=== PATIENT | male | born 1985 | race Caucasian/White ===

== ENCOUNTER 2016-05-05 19:41 | Emergency (ER) | payer MEDICAID ==
[~2016-05-05] VITALS: Ht 177.8 cm; Wt 94.3 kg
[2016-05-05 20:54] LABS: BASOPHIL % 0.6 % (0-2); PLATELET COUNT 213 x10^3mcL (130-400); RED CELL DISTRIBUTION WIDTH 13.6 % (11.5-14.5)
[2016-05-05 21:09] LABS: CALCIUM 8.5 mg/dL (8.5-10.1); CARBON DIOXIDE 26.5 mmol/L (21-32); CHLORIDE SERUM 107 mmol/L (98-107); CREATININE SERUM 0.8 mg/dL (0.7-1.3); GFR1 > 60 mL/min; GLUCOSE SERUM 88 mg/dL (74-106); POTASSIUM SERUM 3.6 mmol/L (3.5-5.1); SODIUM SERUM 145 mmol/L (136-145)
[2016-05-05 21:26] LABS: ALBUMIN 4.1 g/dL (3.4-5.0); ALKALINE PHOSPHATASE 97 U/L (46-116); BILIRUBIN TOTAL 0.33 mg/dL (0.20-1.00); T4(THYROXINE) 7.7 ug/dL (4.7-13.3); TOTAL PROTEIN, SERUM 7.6 g/dL (6.4-8.2)
[2016-05-05 21:40] LABS: ALT/SGPT 39 U/L (16-63); AST/SGOT 20 U/L (15-37)
[2016-05-05 21:54] LABS: AMPHETAMINE QUAL UR NONE DETECTED (NEG <=1000)
[2016-05-05 22:18] VITALS: BP 132/66
== END 2016-05-05 22:18 | disposition home or self-care (01) ==
LOC: ED 19:41
PROVIDERS: Emergency Medicine
DX: F41.1 Generalized anxiety disorder (principal)
CPT/HCPCS: 80307

== ENCOUNTER 2019-02-18 15:58 | Emergency (ER) | payer BC ==
[~2019-02-18] VITALS: Ht 175.3 cm; Wt 112.0 kg
[2019-02-18 16:01] VITALS: Ht 175.3 cm; Wt 112.0 kg
[2019-02-18 16:21] LABS: PLATELET COUNT 210 x10^3mcL (130-400); RED CELL DISTRIBUTION WIDTH 12.7 % (11.5-14.5)
[2019-02-18 16:34] LABS: CALCIUM 9.2 mg/dL (8.5-10.1); CARBON DIOXIDE 30.7 mmol/L (21-32); CHLORIDE SERUM 101 mmol/L (98-107); GFR1 > 60 mL/min; GLUCOSE SERUM 97 mg/dL (74-106); SODIUM SERUM 138 mmol/L (136-145)
[2019-02-18 16:39] LABS: ALBUMIN 4.3 g/dL (3.4-5.0); ALKALINE PHOSPHATASE 89 U/L (46-116); ALT/SGPT 84 U/L (16-63); AST/SGOT 28 U/L (15-37); BILIRUBIN TOTAL 0.77 mg/dL (0.20-1.00)
[2019-02-18 17:30] LABS: AMPHETAMINE QUAL UR NONE DETECTED (See below)
[2019-02-18 19:19] VITALS: BP 137/89
== END 2019-02-18 19:19 | disposition home or self-care (01) ==
LOC: ED 15:58
PROVIDERS: Emergency Medicine
DX: R07.89 Other chest pain (principal); I10 Essential (primary) hypertension; Z98.890 Other specified postprocedural states
CPT/HCPCS: 36415; J1885

== ENCOUNTER 2019-04-06 12:07 | Emergency (ER) | payer BC ==
[~2019-04-06] VITALS: Ht 175.3 cm; Wt 113.4 kg
[2019-04-06 12:26] VITALS: Ht 175.3 cm; Wt 113.4 kg
[2019-04-06 14:25] VITALS: BP 144/71
== END 2019-04-06 14:25 | disposition home or self-care (01) ==
LOC: ED 12:07
DX: M54.41 Lumbago with sciatica, right side (principal); I10 Essential (primary) hypertension; Z98.890 Other specified postprocedural states

== ENCOUNTER 2019-09-26 09:09 | Emergency (ER) | payer BC ==
[~2019-09-26] VITALS: Ht 175.3 cm; Wt 116.1 kg
[2019-09-26 09:17] VITALS: Ht 175.3 cm; Wt 116.1 kg
[2019-09-26 11:13] LABS: CALCIUM 9.1 mg/dL (8.5-10.1); CARBON DIOXIDE 30.4 mmol/L (21-32); CHLORIDE SERUM 101 mmol/L (98-107); CREATININE SERUM 0.8 mg/dL (0.7-1.3); GFR1 > 60 mL/min; GLUCOSE SERUM 93 mg/dL (74-106); PLATELET COUNT 144 x10^3mcL (130-400); RED CELL DISTRIBUTION WIDTH 12.9 % (11.5-14.5); SODIUM SERUM 138 mmol/L (136-145)
[2019-09-26 11:18] LABS: ALBUMIN 4.2 g/dL (3.4-5.0); ALKALINE PHOSPHATASE 73 U/L (46-116); ALT/SGPT 284 U/L (16-63); AST/SGOT 99 U/L (15-37); BILIRUBIN TOTAL 0.6 mg/dL (0.20-1.00); TOTAL PROTEIN, SERUM 7.5 g/dL (6.4-8.2)
[2019-09-26 11:28] LABS: T3 TOTAL 1.06 ng/mL
[2019-09-26 13:40] VITALS: BP 128/89
[2019-09-26 14:46] LABS: FREE T4 0.99 ng/dL (0.76-1.46); FREE THYROXINE INDEX 2.4 ug/dL (1.4-4.5); T4(THYROXINE) 6.6 ug/dL (4.7-13.3)
== END 2019-09-26 13:40 | disposition home or self-care (01) ==
LOC: ED 09:09
PROVIDERS: Emergency Medicine
DX: F41.9 Anxiety disorder, unspecified (principal); R07.89 Other chest pain; R00.2 Palpitations; I10 Essential (primary) hypertension
CPT/HCPCS: 84439; J2405; Q0092

== ENCOUNTER 2020-04-20 14:32 | Inpatient (IN) | payer MEDICAID ==
[~2020-04-20] VITALS: Ht 175.3 cm; Wt 95.3 kg
[2020-04-20 14:40] VITALS: Ht 175.3 cm; Wt 95.3 kg
--- NOTE | 2020-04-20 15:02 | NUR ---
PT ARRIVED TO ED WITH COMPLAINTS OF RLQ ABD PAIN. PT STATES PAIN STARTED A COUPLE OF DAYS AGO AND STARTED OUT A GASSY LIKE PAIN TO THE EPIGASTRIC AREA THEN STARTED LAST NIGHT PAIN TRAVELED TO THE RLQ AND PAIN IS CRAMPING/SHARP LIKE 8/10 PAIN THAT IS MORE TENDER WITH PALPATION. PT DENIES ANY N/V. PT STATES YESTERDAY D/T THE EPIGASTRIC PAIN TOOK A MEDICATION SIMILAR TO A LAXATIVE TO "DETOX MY BODY" AND HAD DIARRHEA AFTER. PT DENIES ANY DIARRHEA BEFORE LAXATIVE. PT LOOKS TO BE IN NO ACUTE DISTRESS AT THIS TIME. CHANGED INTO GOWN. WILL CONTINUE TO MONITOR.
--- NOTE | 2020-04-20 15:22 | NUR ---
PT TAKEN TO CT VIA WHEELCHAIR
--- NOTE | 2020-04-20 15:28 | NUR ---
PT RETURNED FROM CT. PT AMBULATED TO RESTROOM WITH STEADY GAIT.
[2020-04-20 16:05] LABS: CALCIUM 8.7 mg/dL (8.5-10.1); CARBON DIOXIDE 28.6 mmol/L (21-32); CHLORIDE SERUM 103 mmol/L (98-107); CREATININE SERUM 0.8 mg/dL (0.7-1.3); GFR1 > 60 mL/min; GLUCOSE SERUM 93 mg/dL (74-106); POTASSIUM SERUM 4.1 mmol/L (3.5-5.1); SODIUM SERUM 140 mmol/L (136-145)
[2020-04-20 16:09] LABS: ALBUMIN 3.8 g/dL (3.4-5.0); ALKALINE PHOSPHATASE 87 U/L (46-116); ALT/SGPT 36 U/L (16-63); AST/SGOT 14 U/L (15-37); BILIRUBIN TOTAL 0.5 mg/dL (0.20-1.00); LIPASE 85 IU/L (73-393)
[2020-04-20 16:16] LABS: BASOPHIL % 0.4 % (0.2-1.5); PLATELET COUNT 193 x10^3mcL (152-348); RED CELL DISTRIBUTION WIDTH 12.5 % (12.1-16.2)
--- NOTE | 2020-04-20 17:05 | NUR ---
RECIEVED CALL FROM DR. ASHER SURGEON AND RECIEVED ORDERS FOR CXR, EKG, GREGG, ZOSYN 3.375GM Q 6HR, AND D5 1/2 NS 100ML/HR AND ORDER FOR CONSENT FOR LAPROSCOPIC APPENDECTOMY POSSIBLE OPEN. ALSO KEEP PT NPO. DR. HOOPER AWARE.
[2020-04-20] MEDS ORDERED: LEXAPRO10 MG PO (17:38)
[2020-04-20] MEDS ORDERED: ZESTRIL10 MG PO (17:38)
[2020-04-20] MEDS ORDERED: INDERAL LA60 MG PO (17:38)
--- NOTE | 2020-04-20 17:50 | NUR ---
SPOKE W/ MARK IN SURGERY; PT IS NOT YET SCHEDULED. PT REQUESTS TO WAIT UNTIL LAST MINUTE TO COMPLETELY UNDRESS.
--- NOTE | 2020-04-20 18:15 | NUR ---
REPORT GIVEN TO YONATHAN IN OR
--- NOTE | 2020-04-20 18:21 | NUR ---
CALLED AND GAVE REPORT TO MICHAEL HARRIS
--- NOTE | 2020-04-20 18:30 | NUR ---
REC'D REPORT FROM ED NURSE SEE. PT WILL BE GOING TO SURGERY AND THEN BE ADMITTED TO ROOM 254B. WILL ENDORSE TO INSTRUMENT ASSEMBLY SUPERVISOR.
--- NOTE | 2020-04-20 18:38 | NUR ---
PT TAKEN TO SURGERY VIA [facility] WITH ALL PERSONAL BELONGINGS
--- NOTE | 2020-04-20 21:30 | NUR ---
PT TRANSFERRED TO BED FROM OR, A/O X4, ON 2L NC, NO ACUTE DISSTRESS, PULSES PRESENT +2 BILATERALLY BUE/BLE, BILATERAL CLEAR BREATH SOUNDS, NO DIFFICULTY BREATHING, NO CHEST PAIN OR PRESSURE AT THIS TIME, BOWEL SOUNDS ACTIVE, SKIN WARM DRY AND INTACT, PAIN OF 8/10 STATED AT THIS TIME, LAC IV SITE PATENT AND WORKING APPROPRIATELY, BED IN LOWEST POSITION, CALL LIGHT PLACED WITHIN REACH. INITIAL VS 97.0 TEMP, RR 20, BP 103/49, HR 76.
[2020-04-20 21:45] VITALS: BP 103/49
[2020-04-20 22:00] VITALS: BP 104/53
[2020-04-20 22:15] VITALS: BP 105/53
[2020-04-20 22:30] VITALS: BP 107/55
[2020-04-20 22:45] VITALS: BP 107/54
[2020-04-20 23:16] VITALS: BP 108/55
[2020-04-21 00:15] VITALS: BP 109/56
--- NOTE | 2020-04-21 00:45 | NUR ---
PT LAYING IN BED A/O X4, STATES PAIN OF 5/10, ON 2L NC, NO SIGN OF ACUTE DISTRESS AT THIS TIME, BED IN LOWEST POSITION, CALL LIGHT WITHIN REACH, WILL CONTINUE TO MONITOR.
[2020-04-21 03:03] VITALS: BP 103/49
[2020-04-21 04:33] VITALS: BP 102/46
--- NOTE | 2020-04-21 05:04 | NUR ---
PT LAYING IN BED, NO SIGNS OF ACUTE DISTRESS OR PAIN AT THIS TIME, ALL SAFETY MEASURES WNL, WILL ENDORSE CARE TO ONCOMING NURSE
[2020-04-21 06:38] LABS: BASOPHIL % 0.1 % (0.2-1.5); PLATELET COUNT 187 x10^3mcL (152-348); RED CELL DISTRIBUTION WIDTH 12.3 % (12.1-16.2)
[2020-04-21 06:44] LABS: rbc morphology (normal/abnorm) NORMAL (NORMAL)
[2020-04-21 06:50] LABS: CALCIUM 9.3 mg/dL (8.5-10.1); CARBON DIOXIDE 28.7 mmol/L (21-32); CHLORIDE SERUM 102 mmol/L (98-107); CREATININE SERUM 0.9 mg/dL (0.7-1.3); GFR1 > 60 mL/min; GLUCOSE SERUM 136 mg/dL (74-106); POTASSIUM SERUM 4.1 mmol/L (3.5-5.1); SODIUM SERUM 137 mmol/L (136-145)
--- NOTE | 2020-04-21 07:41 | NUR ---
REC'D PT FROM NOC NURSE. PT SLEEPING BUT AROUSABLE. RUNNING D5NS AT 100CC/HR, 20G LAC. PT STATES PAIN IS TOLERABLE BUT SORE AND WOULD LIKE NEXT DOSE OF PAIN MEDICINE AT 0836 PER MD ORDER. PULSES PRESENT, NO EDEMA. AOX4. CALL LIGHT WITHIN REACH, SAFETY MEASURES IN PLACE, WILL CONTINUE TO MONITOR.
[2020-04-21 08:29] VITALS: BP 105/56
--- NOTE | 2020-04-21 08:30 | NUR ---
PT STATES PAIN 8/10 IN ABDOMEN. MEDICATED WITH MORPHINE PER MD ORDERS. WILL REASSESS FOR EFFECTIVENESS.
--- NOTE | 2020-04-21 09:00 | NUR ---
PT STATES MILD PAIN RELIEF. 07/26. CALL LIGHT WITHIN REACH. SAFETY MEASURES IN PLACE. WILL CONTINUE TO MONITOR.
--- NOTE | 2020-04-21 10:30 | NUR ---
PT STATES PAIN 08/25. MEDICATED WITH NORCO PER MD ORDERS. WILL REASSESS FOR EFFECTIVENESS.
--- NOTE | 2020-04-21 11:30 | NUR ---
PT STATES PAIN 5/10. CALL LIGHT WITHIN REACH. SAFETY MEASURES IN PLACE. WILL CONTINUE TO MONITOR.
--- NOTE | 2020-04-21 12:00 | NUR ---
PT AMBULATED HALLWAY ABOUT 200 FEET. ABLE TO VOID FREELY IN TOILET. CALL LIGHT WITHIN REACH, SAFETY MEASURES IN PLACE. WILL CONTINUE TO MONITOR.
[2020-04-21 12:17] VITALS: BP 104/45
--- NOTE | 2020-04-21 13:00 | NUR ---
PT STATES PAIN RELIEF 5/10. CALL LIGHT WITHIN REACH, SAFETY MEASURES IN PLACE, WILL CONTINUE TO MONITOR.
--- NOTE | 2020-04-21 14:00 | NUR ---
PT TOLERATED FULL LIQUID DIET. WILL CONTINUE TO MONITOR.
[2020-04-21 17:33] VITALS: BP 102/45
--- NOTE | 2020-04-21 18:25 | NUR ---
PT DC TO HOME. NO ADN, APPEARS STABLE AMBULATORY, WALKED OFF FLOOR WITH CANOPY INSPECTOR SPENCER. PICKED UP BY DAD. AAOX4. EDUCATION PROVIDED, PT VERBALIZED UNDERSTANDING. PT GIVEN PHONE NUMBER FOR SURGEON FOR FOLLOW UP. RX GIVEN. IV REMOVED. BELONGINGS WITH PATIENT.
== END 2020-04-21 18:30 | disposition home or self-care (01) | DRG 234 ==
LOC: ED 14:32 → MU 16:45
PROVIDERS: Emergency Medicine; Transplant Surgery; ADMIT Internal Medicine; ATTEND Internal Medicine
PROC: 0DTJ4ZZ Resection of Appendix, Percutaneous Endoscopic Approach (ICD-10-PCS; principal; 2020-04-20 18:30)
DX: K35.80 Unspecified acute appendicitis (principal); D72.829 Elevated white blood cell count, unspecified; Z20.822 Contact with and (suspected) exposure to COVID-19; F41.9 Anxiety disorder, unspecified; I10 Essential (primary) hypertension; Z79.899 Other long term (current) drug therapy; Z79.891 Long term (current) use of opiate analgesic; Z79.01 Long term (current) use of anticoagulants
CPT/HCPCS: G0378; J0690; J1170; J2175; J2250; J2270; J2405; J2543; J3010; J3490; J7030; J7042; J7050; J7120